=== PATIENT | female | born 1995 | race Caucasian/White ===

== ENCOUNTER 2017-12-05 06:05 | Emergency (ER) | payer SELFPAY ==
[~2017-12-05] VITALS: Ht 154.9 cm; Wt 71.3 kg
[2017-12-05 06:12] VITALS: BP 117/82; TEMP 97.2
[2017-12-05 08:31] VITALS: PULSE 79
== END 2017-12-05 08:30 | disposition home or self-care (01) ==
LOC: COL.ER 06:05
DX: S01.81XA Laceration without foreign body of other part of head, initial encounter (principal); F10.129 Alcohol abuse with intoxication, unspecified; W01.10XA Fall on same level from slipping, tripping and stumbling with subsequent striking against unspecified object, initial encounter